=== PATIENT | female | born 1960 | race Caucasian/White ===

== ENCOUNTER 2023-06-06 15:47 | Emergency (ER) | payer OTHER, SELFPAY ==
[2023-06-06 15:52] VITALS: BP 136/90; PULSE 97; TEMP 37.3; O2SAT 97; BMI 32.3
[2023-06-06 16:17] LABS: Bilirubin Urine NEGATIVE (NEGATIVE); Blood Urine NEGATIVE (NEGATIVE); Clarity Urine CLEAR (CLEAR); Color Urine YELLOW (YELLOW); Glucose Urine UA NEGATIVE (NEGATIVE); Ketones Urine NEGATIVE (NEGATIVE); Leukocyte Esterase Urine NEGATIVE (NEGATIVE); Nitrite Urine NEGATIVE (NEGATIVE); Protein Urine NEGATIVE (NEG/TRACE); Specific Gravity Urine <=1.005 (1.005-1.025); Urobilinogen Urine 0.2 EU/dL (0.2-1.0)
--- NOTE | 2023-06-06 16:18 | ED_ITS ---
Documented by User: Ami Pinedaey 06/06/23 18:41 HPI - Female Genitourinary General Chief complaint: Urogenital-Female Stated complaint: UTI Time Seen by Provider: 06/06/23 15:53 Source: patient Mode of arrival: walk-in History of Present Illness HPI Narrative: 62-year-old female presents here with a chief complaint of urinary frequency and burning with urination. She states she has had her symptoms for the last 3 to 4 days. She denies any fevers or chills. She had a history of UTIs in the past but has been several years. Patient has no pain to palpation to the abdomen. She said mostly has increased frequency and occasional burning.Currently healthy no acute past medical history Related Data Previous Rx's ?Medication ?Instructions ?Recorded cephalexin 500 mg capsule 500 mg PO Q8H 7 days #21 caps 06/06/23 phenazopyridine 100 mg tablet 100 mg PO Q8H 6 doses #6 tabs 06/06/23 Allergies Allergy/AdvReac Type Severity Reaction Status Date / Time pcn Allergy Mild Uncoded 06/06/23 15:51 Review of Systems ROS Narrative All Systems are negative except as noted/marked.All systems reviewed and otherwise negative Exam Narrative Exam Narrative: Nurses note and vital signs reviewed and patient is not hypoxic. General: The patient appears well and in no apparent distress. Patient is resting comfortably on cart. Skin: Warm, dry, no pallor noted. There is no rash noted. Head: Normocephalic, atraumatic Eye: Normal conjunctiva, no drainage, EOMI. PERRL Ears, Nose, Mouth, and Throat: oral mucosa is moist. Nares patent. Mouth without vesicles. Ear canals patent. Tm's without Erythema Cardiovascular: Regular Rate and Rhythm Respiratory: Patient is in no distress, no accessory muscle use, lungs are clear to auscultation, no wheezing, rales or rhonchi Back: non-tender, no CVA tenderness bilaterally to percussion. . Musculoskeletal: The patient has no evidence of calf tenderness, no pitting edema, symmetrical pulses noted bilaterally Neurological: A&O x4, normal speech Psychiatric: Cooperative Constitutional Vital Signs, click to edit/add: Last Vital Signs Temp 99.1 F 06/06/23 15:52 Pulse 97 H 06/06/23 15:52 Resp 18 06/06/23 15:52 BP 136/90 06/06/23 15:52 Pulse Ox 97 06/06/23 15:52 Course Vital Signs Vital signs: Vital Signs Temperature 99.1 F 06/06/23 15:52 Pulse Rate 97 H 06/06/23 15:52 Respiratory Rate 18 06/06/23 15:52 Blood Pressure 136/90 06/06/23 15:52 Pulse Oximetry 97 06/06/23 15:52 Temperature 99.1 F 06/06/23 15:52 Pulse Rate 97 H 06/06/23 15:52 Respiratory Rate 18 06/06/23 15:52 Blood Pressure 136/90 06/06/23 15:52 Pulse Oximetry 97 06/06/23 15:52 MDM - Female Genitourinary MDM Narrative Medical decision making narrative: 62-year-old female presents here with a chief complaint of increased urinary frequency and burning. She is generally healthy. Urinalysis obtained shows trace Bacteria. She states this is similar to previous urinary tract infections she has had in the past. History of yeast infection or any vaginal discharge or discomfort consistent with yeast infection today. She prophylactically placed on Keflex and Pyridium. Given a dose of Pyridium here. Will send the urine out for culture. Patient verbalized understanding agrees with plan of care. Differential Diagnosis Differential diagnosis: Likely urinary tract infection and cystitis Medical Records Attestation: I reviewed the patient's medical records. Lab Data Attestation: I reviewed the patient's lab results. Labs: Lab Results 06/06/23 Range/Units 16:05 Urine Color Yellow (YELLOW) Urine Clarity Clear (CLEAR) Urine pH 6.0 (5.0-9.0) Ur Specific [place] <=1.005 A (1.005-1.025) Urine Protein Negative (NEG/TRACE) mg/dL Urine Glucose (UA) Negative (NEGATIVE) mg/dL Urine Ketones Negative (NEGATIVE) mg/dL Urine Occult Blood Negative (NEGATIVE) Urine Nitrite Negative (NEGATIVE) Urine Bilirubin Negative (NEGATIVE) Urine Urobilinogen 0.2 (0.2-1.0) EU/dL Ur Leukocyte Esterase Negative (NEGATIVE) Urine RBC 0-2 (0-2) #/HPF Urine WBC None seen (NONE SEEN) #/HPF Ur Squamous Epith Cells Rare (NONE/RARE) #/LPF Urine Crystals None seen (None Seen) #/HPF Urine Bacteria Trace A (NONE SEEN) #/HPF Urine Casts None seen (NONE SEEN) #/LPF Urine Mucus None seen (NONE SEEN) Discharge Plan Discharge Stand Alone Forms: Portal Instructions Chief Complaint: Urogenital-Female Clinical Impression: Dysuria Patient Disposition: Home, Self-Care Time of Disposition Decision: 16:29 Condition: Good Mode of Transportation: Private Vehicle Prescriptions / Home Meds: New cephalexin 500 mg capsule 500 mg PO Q8H 7 Days Qty: 21 0RF phenazopyridine 100 mg tablet 100 mg PO Q8H Qty: 6 0RF Print Language: Congolese Instructions: Dysuria (ED) Referrals: Physician,Non-Staff, [Primary Care Provider] - 1 week Discharge Date/Time: 06/06/23 16:44 Documented by User: Macho Abreu MD 06/06/23 21:53 HPI - Female Genitourinary General Chief complaint: Urogenital-Female Stated complaint: UTI Time Seen by Provider: 06/06/23 15:53 Related Data Previous Rx's ?Medication ?Instructions ?Recorded cephalexin 500 mg capsule 500 mg PO Q8H 7 days #21 caps 06/06/23 phenazopyridine 100 mg tablet 100 mg PO Q8H 6 doses #6 tabs 06/06/23 Allergies Allergy/AdvReac Type Severity Reaction Status Date / Time pcn Allergy Mild Uncoded 06/06/23 15:51 Exam Constitutional Vital Signs, click to edit/add: Last Vital Signs Temp 99.1 F 06/06/23 15:52 Pulse 97 H 06/06/23 15:52 Resp 18 06/06/23 15:52 BP 136/90 06/06/23 15:52 Pulse Ox 97 06/06/23 15:52 Course Vital Signs Vital signs: Vital Signs Temperature 99.1 F 06/06/23 15:52 Pulse Rate 97 H 06/06/23 15:52 Respiratory Rate 18 06/06/23 15:52 Blood Pressure 136/90 06/06/23 15:52 Pulse Oximetry 97 06/06/23 15:52 Temperature 99.1 F 06/06/23 15:52 Pulse Rate 97 H 06/06/23 15:52 Respiratory Rate 18 06/06/23 15:52 Blood Pressure 136/90 06/06/23 15:52 Pulse Oximetry 97 06/06/23 15:52 MDM - Female Genitourinary MDM Narrative Medical decision making narrative: 62-year-old female presents here with a chief complaint of increased urinary frequency and burning. She is generally healthy. Urinalysis obtained shows trace Bacteria. She states this is similar to previous urinary tract infections she has had in the past. History of yeast infection or any vaginal discharge or discomfort consistent with yeast infection today. She prophylactically placed on Keflex and Pyridium. Given a dose of Pyridium here. Will send the urine out for culture. Patient verbalized understanding agrees with plan of care. I, Dr Abreu, have reviewed the above progress note and course of action in the ER; agree with the above. I have gone over history and physical, and discussed disposition and treatment plan with the patient. Lab Data Labs: Lab Results 06/06/23 Range/Units 16:05 Urine Color Yellow (YELLOW) Urine Clarity Clear (CLEAR) Urine pH 6.0 (5.0-9.0) Ur Specific [place] <=1.005 A (1.005-1.025) Urine Protein Negative (NEG/TRACE) mg/dL Urine Glucose (UA) Negative (NEGATIVE) mg/dL Urine Ketones Negative (NEGATIVE) mg/dL Urine Occult Blood Negative (NEGATIVE) Urine Nitrite Negative (NEGATIVE) Urine Bilirubin Negative (NEGATIVE) Urine Urobilinogen 0.2 (0.2-1.0) EU/dL Ur Leukocyte Esterase Negative (NEGATIVE) Urine RBC 0-2 (0-2) #/HPF Urine WBC None seen (NONE SEEN) #/HPF Ur Squamous Epith Cells Rare (NONE/RARE) #/LPF Urine Crystals None seen (None Seen) #/HPF Urine Bacteria Trace A (NONE SEEN) #/HPF Urine Casts None seen (NONE SEEN) #/LPF Urine Mucus None seen (NONE SEEN) Discharge Plan Discharge Stand Alone Forms: Portal Instructions Chief Complaint: Urogenital-Female Clinical Impression: Dysuria Patient Disposition: Home, Self-Care Time of Disposition Decision: 16:29 Condition: Good Mode of Transportation: Private Vehicle Prescriptions / Home Meds: New cephalexin 500 mg capsule 500 mg PO Q8H 7 Days Qty: 21 0RF phenazopyridine 100 mg tablet 100 mg PO Q8H Qty: 6 0RF Print Language: [place]olese Instructions: Dysuria (ED) Referrals: Physician,Non-Staff, MD [Primary Care Provider] - 1 week Discharge Date/Time: 06/06/23 16:44
[2023-06-06] MEDS: PHENAZOPYRIDINE 100 MG TABLET PO (16:22)
[2023-06-06 16:26] LABS: Bacteria Urine TRACE #/HPF (NONE SEEN); Cast Seen? NONE SEEN #/LPF (NONE SEEN); Crystals Seen? None Seen #/HPF (None Seen); Mucus Urine NONE SEEN (NONE SEEN); RBC Urine 0-2 #/HPF (0-2); Squamous Epithelial Cell Urine RARE #/LPF (NONE/RARE); WBC Urine NONE SEEN #/HPF (NONE SEEN)
== END 2023-06-06 16:44 | disposition home or self-care (01) ==
PROVIDERS: Physician Assistant; Emergency Provider Emergency Medicine
DX: R30.0 Dysuria (principal); Z87.440 Personal history of urinary (tract) infections
CPT/HCPCS: 81001; 87086; 99283